=== PATIENT | male | born 1955 | race African-American/Black ===

== ENCOUNTER 2018-05-01 12:05 | Day surgery (SDC) | payer MEDICAID, OTHER ==
[~2018-05-01] VITALS: Ht 185.4 cm; Wt 93.2 kg
[2018-05-01 13:19] VITALS: Ht 185.4 cm; Wt 93.2 kg
[2018-05-01 13:57] VITALS: BP 164/72; PULSE 49; RESP 15
[2018-05-01] MEDS ORDERED: MIDAZOLAM 1 MG/ML 2 ML INJ ONE ×2 (17:09)
[2018-05-01] MEDS ORDERED: FENTAnyl 50 MCG/ML VIAL ONE (17:09)
== END 2018-05-01 15:25 | disposition home or self-care (01) ==
LOC: GIL 12:05
PROVIDERS: ATTEND Internal Medicine
DX: Z12.11 Encounter for screening for malignant neoplasm of colon (principal); D12.0 Benign neoplasm of cecum; D12.3 Benign neoplasm of transverse colon; K64.8 Other hemorrhoids; I10 Essential (primary) hypertension
CPT/HCPCS: 45380; 45385; 88305; J2250; J3010; Z7610